=== PATIENT | male | born 1955 | race American Indian/Alaskan Native ===

== ENCOUNTER 2018-06-02 23:46 | Inpatient (IN) | payer MEDICARE ==
[2018-06-03] MEDS ORDERED: NACL 0.9% 500 ML 500 ML IV ONE (00:03)
--- NOTE | 2018-06-03 00:03 | Emergency Department Report ---
ED Altered Mental Status HPI - General Stated Complaint: POSSIBLE SEPSIS Time Seen by Provider: 06/02/18 23:59 Source: patient, family, EMS Mode of arrival: Stretcher Limitations: Altered Mental Status - History of Present Illness Initial Comments: Patient is 62-year-old male presents emergency room via EMS. EMS states that the patient's family called 911 for altered mental status and possible high sugar. However when EMS assessed patient patient was hypoxic and had a fever and was altered. Patient and family deny cough and abdominal pain. Patient denies chest pain shortness of breath patient is A& O 2 patient is lethargic but arousable. is at bedside. per , patient has not complained of any chest pain shortness of breath, abdominal pain. Patient's states that the patient has a history of CHF, hypertension, and end-stage renal disease on hemodialysis. states that the patient has had 2 bouts of diarrhea today. No blood noted in the stool MD Complaint: altered mental status -: Sudden Severity: severe Associated Symptoms: fever/chills, malaise, weakness. denies: chest pain, cough , diaphoresis, headaches, loss of appetite, nausea/vomiting, rash, seizure, shortness of breath, syncope, foul smelling urine, difficulty walking, diarrhea , incontinence Treatments Prior to Arrival: oxygen - Related Data Allergies Allergy/AdvReac Type Severity Reaction Status Date / Time No Known Allergies Allergy Verified 06/03/18 00:40 ED Review of Systems ROS: Stated complaint: POSSIBLE SEPSIS Other details as noted in HPI Comment: Unobtainable due to pts medical conditions ED Past Medical Hx - Past Medical History Previous Medical History?: Yes Hx Hypertension: Yes Hx Congestive Heart Failure: Yes Hx Diabetes: Yes Hx Renal Disease: Yes (hd) - Surgical History Past Surgical History?: Yes Additional Surgical History: Hemodialysis shunt - Family History Family history: no significant - Social History Smoking Status: Never Smoker Substance Use Type: None ED Physical Exam - General Limitations: Altered Mental Status General appearance: alert, in no apparent distress, lethargic (but arousable) - Head Head exam: Present: atraumatic, normocephalic - Eye Eye exam: Present: normal appearance Pupils: Present: normal accommodation - ENT ENT exam: Present: mucous membranes dry - Neck Neck exam: Present: normal inspection - Respiratory Respiratory exam: Present: normal lung sounds bilaterally. Absent: respiratory distress - Cardiovascular Cardiovascular Exam: Present: regular rate, normal rhythm. Absent: systolic murmur, diastolic murmur, rubs, gallop - GI/Abdominal GI/Abdominal exam: Present: soft, normal bowel sounds - Rectal Rectal exam: Present: deferred - Extremities Exam Extremities exam: Present: normal inspection - Back Exam Back exam: Present: normal inspection - Neurological Exam Neurological exam: Present: alert, altered - Expanded Neurological Exam Expanded Best Eye Response (Venus): (3) open to voice Best Motor Response (Venus): (6) obeys commands Best Verbal Response (Marylu): (4) confused conversation Venus Total: 13 - Skin Skin exam: Present: warm, dry, normal color. Absent: rash - Assessment Assessment Interval: Baseline - Level of Consciousness 1a. Level of Consciousness: not alert, arousable - LOC Questions 1b. LOC Questions: answers correctly - LOC Command 1c. LOC Commands: performs tasks correctly - Best Gaze 2. Best Gaze: normal - Visual 3. Visual: no visual loss - Facial Palsy 4. Facial Palsy: normal symmetrical movement - Motor Arm 5b. Motor Arm Right: no drift 5a. Motor Arm Left: no drift - Motor Leg 6a. Motor Leg Left: no drift 6b. Motor Leg Right: no drift - Limb Ataxia 7. Limb Ataxia: absent - Sensory 8. Sensory: normal - Best Language 9. Best Language: no aphasia - Dysarthria 10. Dysarthria: normal - Extinction and Inattention 11. Extinction/Inattention: no abnormality - Scoring Total Score: 1 Stroke Severity: Minor Stroke ED Course Vital Signs 06/02/18 06/02/18 06/03/18 23:53 23:55 00:01 Temperature 100.6 F H Pulse Rate 111 H 111 H 110 H Respiratory 19 20 19 Rate Blood Pressure 78/45 78/45 O2 Sat by Pulse 92 89 85 Oximetry 06/03/18 06/03/18 06/03/18 00:15 00:31 00:46 Temperature Pulse Rate 106 H 104 H 105 H Respiratory 17 21 17 Rate Blood Pressure 78/45 78/45 84/46 O2 Sat by Pulse 97 96 100 Oximetry 06/03/18 06/03/18 06/03/18 01:00 01:01 01:53 Temperature Pulse Rate 100 H Respiratory 18 Rate Blood Pressure 92/41 O2 Sat by Pulse 97 95 93 Oximetry 06/03/18 06/03/18 06/03/18 02:00 02:16 02:30 Temperature Pulse Rate Respiratory Rate Blood Pressure 92/41 95/53 92/41 O2 Sat by Pulse 94 93 95 Oximetry 06/03/18 06/03/18 06/03/18 02:46 03:00 03:15 Temperature Pulse Rate Respiratory Rate Blood Pressure 91/52 84/46 91/52 O2 Sat by Pulse 98 92 87 Oximetry 06/03/18 05:38 Temperature Pulse Rate Respiratory Rate Blood Pressure 86/46 O2 Sat by Pulse Oximetry - Reevaluation(s) Reevaluation #1: Lungs still clear. Blood pressure still low. We'll give the patient another saline bolus. We'll continue to monitor patient's blood pressure and respiratory status to avoid pulmonary edema. 06/03/18 02:50 Reevaluation #2: discussed case with [facility] doctor, dr mejia. Dr mejia gave us approval to admit here 06/03/18 04:47 Reevaluation #3: Blood pressure has improved. In heart rate has improved. Per the patient's , his blood pressure is usually around 100. Discussed results with and patient. Patient is oriented 3 At this time. states that he has had a bladder infection in the past that has caused similar symptoms for him. Patient and agree with plan of care and admission to the hospital. 06/03/18 04:55 - EJ/Peripheral Line Neck L Time Out Performed: Yes Indications: nurses unable to establis Skin Cleansed in Sterile Fashion: Yes Size: 20 Dressing Placed: Tegaderm, tape Patient Tolerated Procedure: well - Lab Data Result diagrams: 06/03/18 00:48 06/03/18 01:41 Lab Results 06/03/18 06/03/18 06/03/18 Range/Units 00:48 00:48 01:41 WBC 15.1 H (4.5-11.0) K/mm3 RBC 3.92 (3.65-5.03) M/mm3 Hgb 11.4 L (11.8-15.2) gm/dl Hct 34.5 L (35.5-45.6) % MCV 88 (84-94) fl MCH 29 (28-32) pg MCHC 33 (32-34) % RDW 19.3 H (13.2-15.2) % Plt Count 334 (140-440) K/mm3 Lymph % (Auto) 7.8 L (13.4-35.0) % [place] % (Auto) 11.1 H (0.0-7.3) % Eos % (Auto) 1.2 (0.0-4.3) % Baso % (Auto) 0.4 (0.0-1.8) % Lymph # 1.2 (1.2-5.4) K/mm3 [place] # 1.7 H (0.0-0.8) K/mm3 Eos # 0.2 (0.0-0.4) K/mm3 Baso # 0.1 (0.0-0.1) K/mm3 Seg Neutrophils % 79.5 H (40.0-70.0) % Seg Neutrophils # 12.0 H (1.8-7.7) K/mm3 Sodium 135 L (137-145) mmol/L Potassium 5.1 H (3.6-5.0) mmol/L Chloride 89.5 L (98-107) mmol/L Carbon Dioxide 31 H (22-30) mmol/L Anion Gap 20 mmol/L BUN 35 H (9-20) mg/dL Creatinine 7.3 H (0.8-1.5) mg/dL Estimated GFR 9 ml/min BUN/Creatinine Ratio 5 % Glucose 299 H (75-100) mg/dL Lactic Acid 1.20 (0.7-2.0) mmol/L Calcium 9.0 (8.4-10.2) mg/dL Total Bilirubin 0.30 (0.1-1.2) mg/dL AST 22 (5-40) units/L ALT 24 (7-56) units/L Alkaline Phosphatase 118 (35-129) units/L Total Creatine Kinase 32 L (55-170) units/L Troponin T 0.074 H (0.00-0.029) ng/mL Total Protein 6.6 (6.3-8.2) g/dL Albumin 3.3 L (3.9-5) g/dL Albumin/Globulin Ratio 1.0 % Triglycerides 134 (2-149) mg/dL Cholesterol 68 (50-199) mg/dL LDL Cholesterol Direct 26 L (50-130) mg/dL HDL Cholesterol 12 L (40-59) mg/dL Cholesterol/HDL Ratio 5.66 % - EKG Data -: EKG Interpreted by Me EKG shows normal: sinus rhythm, axis, intervals, QRS complexes, ST-T waves Rate: tachycardia - Radiology Data Radiology results: report reviewed CT abdomen shows generalized thickening of the bladder consistent with acute cystitis. CT head is negative for acute findings. Chronic findings noted. Chest x-ray no acute findings. - Medical Decision Making 62-year-old male. The patient is emergency room with hypotension and tachycardia and fever. Patient found to be septic. Patient to be admitted to the hospitalist service for further evaluation and treatment. All results discussed with family and patient. Both and patient agreed to admission. - Differential Diagnosis sepsis. fever. pna, uti, ams. Critical Care Time: Yes Critical care attestation.: If time is entered above; I have spent that time in minutes in the direct care of this critically ill patient, excluding procedure time. Critical Care Time: 55 minutes for cc time ED Disposition Clinical Impression: Hypoxia, CKD (chronic kidney disease) stage 5, GFR less than 15 ml/min, Hyperkalemia Altered mental state Qualifiers: Altered mental status type: unspecified Qualified Code(s): R41.82 - Altered mental status, unspecified Hypotension Qualifiers: Hypotension type: unspecified hypotension type Qualified Code(s): I95.9 - Hypotension, unspecified Fever Qualifiers: Fever type: unspecified Qualified Code(s): R50.9 - Fever, unspecified Sepsis Qualifiers: Sepsis type: sepsis due to unspecified organism Qualified Code(s): A41.9 - Sepsis, unspecified organism Acute cystitis Qualifiers: Hematuria presence: without hematuria Qualified Code(s): N30.00 - Acute cystitis without hematuria Disposition: OP ADMIT IP TO THIS HOSP Is pt being admited?: Yes Does the pt Need Aspirin: No Condition: Critical Time of Disposition: 04:56
[2018-06-03] MEDS ORDERED: NACL 0.9% 1000 ML 1,000 ML IV ONE ×3 (00:20→04:52)
[2018-06-03 01:36] LABS: Basophils # (Auto) 0.1 K/mm3 (0.0-0.1); Basophils % (Auto) 0.4 % (0.0-1.8); Eosinophils # (Auto) 0.2 K/mm3 (0.0-0.4); Eosinophils % (Auto) 1.2 % (0.0-4.3); Hematocrit 34.5 % (35.5-45.6); Hemoglobin 11.4 gm/dl (11.8-15.2); Lymphocytes # (Auto) 1.2 K/mm3 (1.2-5.4); Lymphocytes % (Auto) 7.8 % (13.4-35.0); Mean Corpuscular HGB Conc 33 % (32-34); Mean Corpuscular Hemoglobin 29 pg (28-32); Mean Corpuscular Volume 88 fl (84-94); Monocytes # (Auto) 1.7 K/mm3 (0.0-0.8); Monocytes % (Auto) 11.1 % (0.0-7.3); Platelet Count 334 K/mm3 (140-440); Red Blood Count 3.92 M/mm3 (3.65-5.03); Red Cell Distribution Width 19.3 % (13.2-15.2)
--- NOTE | 2018-06-03 01:45 | Cat Scan Report ---
FINAL REPORT EXAM: CT HEAD/BRAIN WO CON HISTORY: Altered Mental Status TECHNIQUE: Routine axial imaging was obtained of the brain without IV contrast. FINDINGS: There is diminished attenuation of the periventricular and deep white matter compatible with chronic microvascular disease changes. There is no evidence of acute stroke or hemorrhage. The ventricular system is appropriate in size. The basal cisterns appear normal. The visualized sinuses are clear. The mastoid air cells are well pneumatized. The calvarium appears intact. IMPRESSION: Diminished attenuation of the periventricular and deep white matter compatible chronic microvascular disease changes. No evidence of acute stroke or hemorrhage.
[2018-06-03 02:11] LABS: Albumin 3.3 g/dL (3.9-5)
[2018-06-03 02:54] LABS: Chol/HDL Ratio 5.66 %
[2018-06-03] MEDS ORDERED: ZOSYN/NS 2.25 GM/50ML 2.25 GM/50 ML BAG IV SCH ×2 (03:00→12:00)
--- NOTE | 2018-06-03 03:30 | XRay Report ---
FINAL REPORT EXAM: XR CHEST 1V AP HISTORY: fever TECHNIQUE: A portable view the chest was obtained. FINDINGS: The heart size and vascularity appear normal. The lungs are clear. Pleural fluid is not seen. The skeletal structures do not show any acute changes. IMPRESSION: No acute cardiopulmonary process.
--- NOTE | 2018-06-03 04:16 | Cat Scan Report ---
FINAL REPORT EXAM: CT ABDOMEN PELVIS WO CON HISTORY: diarrhea. fever. TECHNIQUE: Routine axial imaging was obtained of the abdomen and pelvis without oral or IV contrast. Sagittal and coronal reconstructions were reviewed. FINDINGS: Lung bases reveal mild chronic changes. Pleural fluid is not seen. There is a small hiatal hernia. The liver, gallbladder, adrenal glands and spleen appear normal. The pancreas is mildly atrophic. The kidneys are very atrophic. There benign cystic changes in the right kidney. There is no evidence of hydronephrosis. The bowel loops are normal in caliber and course. The appendix is not enlarged. There is no evidence of free fluid or adenopathy. In the pelvis there is generalized bladder wall thickening suspicious for cystitis. The prostate gland appears normal. The skeletal structures reveal arthritic changes in both hip joints and extensive arthritic changes throughout the lumbar spine. IMPRESSION: Generalized bladder wall thickening suspicious for underlying cystitis. No evidence of ileus or bowel obstruction. Normal appendix. Extensive arthritic changes involving the hip joints and lumbar spine. Small hiatal hernia.
[2018-06-03] MEDS ORDERED: NORCO 5/325 PO PRN (06:21)
[2018-06-03] MEDS ORDERED: TYLENOL PO PRN (06:21)
[2018-06-03] MEDS ORDERED: SODIUM CHLORIDE FLUSH SYRINGE 10 ML IV PRN (06:21)
[2018-06-03] MEDS ORDERED: ZOFRAN IV PRN (06:21)
[2018-06-03] MEDS ORDERED: D50W (25GM) Syringe IV PRN (06:24)
--- NOTE | 2018-06-03 06:33 | History and Physical Report ---
History of Present Illness Date of examination: 06/03/18 Date of admission: 06/03/18 Chief complaint: Fever with chills History of present illness: Patient is a 62-year-old -[place] male with history of end-stage renal disease on hemodialysis who presented to the ED on account of 1 day history of fever with chills. He denies cough, chest pain, shortness of breath, headaches , nausea, vomiting, dizziness, syncope or loss of consciousness. He stated that he was recently prescribed clindamycin for his chronic Left foot infection. However, he had to stop taking it because it gave him diarrhea. He denies abdominal pain. Past History Past Medical History: diabetes, ESRD (on hemodialysis), other (chronic hypotension, CHF) Past Surgical History: Other (AV fistula placement, multiple toe amputation) Social history: no significant social history (he denies tobacco, alcohol or illicit drug use) Family history: other (reviewed and noncontributory) Medications and Allergies Allergies Allergy/AdvReac Type Severity Reaction Status Date / Time No Known Allergies Allergy Verified 06/03/18 00:40 Active Meds: Active Medications Acetaminophen (Tylenol) 650 mg PO Q4H PRN PRN Reason: Pain MILD(1-3)/Fever >100.5/CRISTOBAL Acetaminophen/Hydrocodone Bitart ([place] 5/325) 1 each PO Q6H PRN PRN Reason: Pain, Moderate (4-6) Dextrose (D50w (25gm) Syringe) 50 ml IV PRN PRN PRN Reason: Hypoglycemia Heparin Sodium (Porcine) (Heparin) 5,000 unit SUB-Q Q8HR MERARI Piperacillin Sod/Tazobactam Sod (Zosyn/Ns 3.375gm/50ml) 3.375 gm in 50 mls @ 100 mls/hr IV Q8HR MERARI; Protocol Insulin Glargine (Lantus) 15 units SUB-Q QHS MERARI Insulin Human Lispro (Humalog) 0 unit SUB-Q ACHS MERARI; Protocol Ondansetron HCl (Zofran) 4 mg IV Q8H PRN PRN Reason: Nausea And Vomiting Sodium Chloride (Sodium Chloride Flush Syringe 10 Ml) 10 ml IV BID MERARI Sodium Chloride (Sodium Chloride Flush Syringe 10 Ml) 10 ml IV PRN PRN PRN Reason: LINE FLUSH Review of Systems All systems: negative (except as documented in the HPI, all other systems were reviewed and negative) Exam - Constitutional Vitals: Temp Pulse Resp BP Pulse Ox 100.6 F H 100 H 18 86/46 87 06/02/18 23:55 06/03/18 01:00 06/03/18 01:00 06/03/18 05:38 06/03/18 03:15 General appearance: Present: no acute distress, obese - EENT Eyes: Present: PERRL, EOM intact ENT: hearing intact, clear oral mucosa - Neck Neck: Present: supple, normal ROM - Respiratory Respiratory effort: normal Respiratory: bilateral: CTA - Cardiovascular Rhythm: regular Heart Sounds: Present: S1 & S2. Absent: rub, click - Extremities Extremity abnormal: other (dressing noted over left foot) - Abdominal General gastrointestinal: Present: soft, non-tender, non-distended, normal bowel sounds - Musculoskeletal Musculoskeletal: gait normal, strength equal bilaterally - Psychiatric Psychiatric: appropriate mood/affect - Neurologic Neurologic: CNII-XII intact, moves all extremities Results - Labs CBC & Chem 7: 06/03/18 00:48 06/03/18 01:41 Labs: Laboratory Last Values WBC 15.1 K/mm3 (4.5-11.0) H 06/03/18 00:48 RBC 3.92 M/mm3 (3.65-5.03) 06/03/18 00:48 Hgb 11.4 gm/dl (11.8-15.2) L 06/03/18 00:48 Hct 34.5 % (35.5-45.6) L 06/03/18 00:48 MCV 88 fl (84-94) 06/03/18 00:48 MCH 29 pg (28-32) 06/03/18 00:48 MCHC 33 % (32-34) 06/03/18 00:48 RDW 19.3 % (13.2-15.2) H 06/03/18 00:48 Plt Count 334 K/mm3 (140-440) 06/03/18 00:48 Lymph % (Auto) 7.8 % (13.4-35.0) L 06/03/18 00:48 [place] % (Auto) 11.1 % (0.0-7.3) H 06/03/18 00:48 Eos % (Auto) 1.2 % (0.0-4.3) 06/03/18 00:48 Baso % (Auto) 0.4 % (0.0-1.8) 06/03/18 00:48 Lymph # 1.2 K/mm3 (1.2-5.4) 06/03/18 00:48 [place] # 1.7 K/mm3 (0.0-0.8) H 06/03/18 00:48 Eos # 0.2 K/mm3 (0.0-0.4) 06/03/18 00:48 Baso # 0.1 K/mm3 (0.0-0.1) 06/03/18 00:48 Seg Neutrophils % 79.5 % (40.0-70.0) H 06/03/18 00:48 Seg Neutrophils # 12.0 K/mm3 (1.8-7.7) H 06/03/18 00:48 Sodium 135 mmol/L (137-145) L 06/03/18 01:41 Potassium 5.1 mmol/L (3.6-5.0) H 06/03/18 01:41 Chloride 89.5 mmol/L (98-107) L 06/03/18 01:41 Carbon Dioxide 31 mmol/L (22-30) H 06/03/18 01:41 Anion Gap 20 mmol/L 06/03/18 01:41 BUN 35 mg/dL (9-20) H 06/03/18 01:41 Creatinine 7.3 mg/dL (0.8-1.5) H 06/03/18 01:41 Estimated GFR 9 ml/min 06/03/18 01:41 BUN/Creatinine Ratio 5 % 06/03/18 01:41 Glucose 299 mg/dL (75-100) H 06/03/18 01:41 Lactic Acid 1.20 mmol/L (0.7-2.0) 06/03/18 00:48 Calcium 9.0 mg/dL (8.4-10.2) 06/03/18 01:41 Total Bilirubin 0.30 mg/dL (0.1-1.2) 06/03/18 01:41 AST 22 units/L (5-40) 06/03/18 01:41 ALT 24 units/L (7-56) 06/03/18 01:41 Alkaline Phosphatase 118 units/L (35-129) 06/03/18 01:41 Total Creatine Kinase 32 units/L (55-170) L 06/03/18 01:41 Troponin T 0.074 ng/mL (0.00-0.029) H 06/03/18 01:41 Total Protein 6.6 g/dL (6.3-8.2) 06/03/18 01:41 Albumin 3.3 g/dL (3.9-5) L 06/03/18 01:41 Albumin/Globulin Ratio 1.0 % 06/03/18 01:41 Triglycerides 134 mg/dL (2-149) 06/03/18 01:41 Cholesterol 68 mg/dL (50-199) 06/03/18 01:41 LDL Cholesterol Direct 26 mg/dL (50-130) L 06/03/18 01:41 HDL Cholesterol 12 mg/dL (40-59) L 06/03/18 01:41 Cholesterol/HDL Ratio 5.66 % 06/03/18 01:41 Assessment and Plan Assessment and plan: Sepsis probably secondary to chronic left foot cellulitis versus possible cystitis per CT abdomen/pelvis -On IV Zosyn -Follow up blood culture results Chronic left foot cellulitis -Consult wound care nurse Diarrhea -Will check C. difficile toxin due to recent clindamycin use IDDM2 with hyperglycemia -On SSI and Lantus Chronic hypotension -Monitor blood pressure closely End-stage renal disease on HD (M,W,F) -Consult nephrology Prophylaxis -DVT prophylaxis with heparin 40 minutes spent coordinating care
[2018-06-03] MEDS ORDERED: NACL 0.9% 1000 ML 1,000 ML IV SCH (08:00)
[2018-06-03] MEDS: HumaLOG SUB-Q SCH ×4 (09:07→22:19)
--- NOTE | 2018-06-03 13:35 | Progress Note ---
Assessment and Plan Assessment and plan: Mr. 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 * CT ab/pelvis without contrast IMPRESSION: Generalized bladder wall thickening suspicious for underlying cystitis. No evidence of ileus or bowel obstruction. Normal appendix. Extensive arthritic changes involving the hip joints and lumbar spine. Small hiatal hernia. * pCXR reported as no acute findings * CT head w/o contrast IMPRESSION: Diminished attenuation of the periventricular and deep white matter compatible chronic microvascular disease changes. No evidence of acute stroke or hemorrhage. Sepsis due to skin infection probably secondary to chronic left foot cellulitis : treat with IV Zosyn, Follow up blood culture results Acute on chronic left foot cellulitis now with Gangrene: consult Dr. Du and wound care nurse Severe PAD: consult Vascular surgery Diarrhea: check C. difficile toxin due to recent clindamycin use IDDM2 with hyperglycemia and PAD: On SSI and Lantus Chronic hypotension related to ESRD: Monitor blood pressure closely End-stage renal disease on HD (M,W,F): Consult nephrology Hyperkalemia: treat with hemodialysis, bmp am Anemia: cbc in am DVT prophylaxis with heparin Advance care planning: full code Patent's home foot dressing was never removed. The right transmetatarasal amputation site with minor pressure signs but the LEFT lateral foot is necrotic which may extend to midplantar area, also necrotic area on left pinky toe aka 5 digit, Also the right palmar surface of the hands have ulceration. Right aVG present CCT 32 minutes History Interval history: Patient was seen and examined. Follow-up on current diagnosis. Overnight uneventful. Patient denies any chest pain, shortness breath, nausea/vomiting or severe headaches. Imaging, nursing note, chart, labs and old chart reviewed. Discussed with patient. Hospitalist Physical - Physical exam Narrative exam: GEN: WDWN, NAD, Awake, Alert, Orientated x 3 HEENT: NCAT, EOMI, PERRL, OP Clear NECK: supple, no adenopathy, no thyromegaly, no JVD CVS/HEART: RRR, normal S1S2, pulses present bilaterally CHEST/LUNGS: CTA B, Symmetrical chest expansion, good air entry bilaterally GI/Abdomen: soft, NTND, good bowel sounds, no guarding or rebound /Bladder: no suprapubic tenderness, no CVA or paraspinal tenderness EXT/Skin: left foot necrotic lateral upper edge to the midplanter area, left 5th toe area of necrosis, right palmar hand with ulceration, right 1-4 finger amputation at the DIP joint , right transmetatarsal amputation MSK: FROM x 4 Neuro: CN 2-12 grossly intact, no new focal deficits Psych: calm - Constitutional Vitals: Temp Pulse Resp BP Pulse Ox 98.9 F 90 20 97/55 91 06/03/18 12:51 06/03/18 12:51 06/03/18 12:51 06/03/18 12:51 06/03/18 12:51 General appearance: Present: no acute distress, obese Results - Labs CBC & Chem 7: 06/03/18 00:48 06/03/18 01:41 Labs: Laboratory Last Values WBC 15.1 K/mm3 (4.5-11.0) H 06/03/18 00:48 RBC 3.92 M/mm3 (3.65-5.03) 06/03/18 00:48 Hgb 11.4 gm/dl (11.8-15.2) L 06/03/18 00:48 Hct 34.5 % (35.5-45.6) L 06/03/18 00:48 MCV 88 fl (84-94) 06/03/18 00:48 MCH 29 pg (28-32) 06/03/18 00:48 MCHC 33 % (32-34) 06/03/18 00:48 RDW 19.3 % (13.2-15.2) H 06/03/18 00:48 Plt Count 334 K/mm3 (140-440) 06/03/18 00:48 Lymph % (Auto) 7.8 % (13.4-35.0) L 06/03/18 00:48 [place] % (Auto) 11.1 % (0.0-7.3) H 06/03/18 00:48 Eos % (Auto) 1.2 % (0.0-4.3) 06/03/18 00:48 Baso % (Auto) 0.4 % (0.0-1.8) 06/03/18 00:48 Lymph # 1.2 K/mm3 (1.2-5.4) 06/03/18 00:48 [place] # 1.7 K/mm3 (0.0-0.8) H 06/03/18 00:48 Eos # 0.2 K/mm3 (0.0-0.4) 06/03/18 00:48 Baso # 0.1 K/mm3 (0.0-0.1) 06/03/18 00:48 Seg Neutrophils % 79.5 % (40.0-70.0) H 06/03/18 00:48 Seg Neutrophils # 12.0 K/mm3 (1.8-7.7) H 06/03/18 00:48 Sodium 135 mmol/L (137-145) L 06/03/18 01:41 Potassium 5.1 mmol/L (3.6-5.0) H 06/03/18 01:41 Chloride 89.5 mmol/L (98-107) L 06/03/18 01:41 Carbon Dioxide 31 mmol/L (22-30) H 06/03/18 01:41 Anion Gap 20 mmol/L 06/03/18 01:41 BUN 35 mg/dL (9-20) H 06/03/18 01:41 Creatinine 7.3 mg/dL (0.8-1.5) H 06/03/18 01:41 Estimated GFR 9 ml/min 06/03/18 01:41 BUN/Creatinine Ratio 5 % 06/03/18 01:41 Glucose 299 mg/dL (75-100) H 06/03/18 01:41 POC Glucose 256 (70-105) H 06/03/18 12:01 Lactic Acid 1.20 mmol/L (0.7-2.0) 06/03/18 00:48 Calcium 9.0 mg/dL (8.4-10.2) 06/03/18 01:41 Total Bilirubin 0.30 mg/dL (0.1-1.2) 06/03/18 01:41 AST 22 units/L (5-40) 06/03/18 01:41 ALT 24 units/L (7-56) 06/03/18 01:41 Alkaline Phosphatase 118 units/L (35-129) 06/03/18 01:41 Total Creatine Kinase 32 units/L (55-170) L 06/03/18 01:41 Troponin T 0.074 ng/mL (0.00-0.029) H 06/03/18 01:41 Total Protein 6.6 g/dL (6.3-8.2) 06/03/18 01:41 Albumin 3.3 g/dL (3.9-5) L 06/03/18 01:41 Albumin/Globulin Ratio 1.0 % 06/03/18 01:41 Triglycerides 134 mg/dL (2-149) 06/03/18 01:41 Cholesterol 68 mg/dL (50-199) 06/03/18 01:41 LDL Cholesterol Direct 26 mg/dL (50-130) L 06/03/18 01:41 HDL Cholesterol 12 mg/dL (40-59) L 06/03/18 01:41 Cholesterol/HDL Ratio 5.66 % 06/03/18 01:41
[2018-06-03] MEDS ORDERED: ZOSYN/NS 3.375GM/50ML 3.375 GM/50 ML BAG IV SCH (14:00)
[2018-06-03] MEDS: HEPARIN SUB-Q SCH ×2 (14:25→22:14)
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
[2018-06-03] MEDS: FLAGYL 500 MG/100 ML 500 MG/100 ML BAG IV SCH ×2 (15:31→22:20)
[2018-06-03] MEDS ORDERED: NACL 0.9% 100 ML IV PRN (15:50)
[2018-06-03] MEDS: ZOSYN/NS 2.25 GM/50ML 2.25 GM/50 ML BAG IV SCH ×2 (18:19→22:15)
[2018-06-03] MEDS: SODIUM CHLORIDE FLUSH SYRINGE 10 ML IV SCH ×2 (18:20→22:15)
[2018-06-03] MEDS: LANTUS SUB-Q SCH (22:20)
[2018-06-04] MEDS: ZOSYN/NS 2.25 GM/50ML 2.25 GM/50 ML BAG IV SCH ×3 (05:01→22:25)
[2018-06-04] MEDS: HEPARIN SUB-Q SCH ×3 (05:02→22:25)
[2018-06-04] MEDS: FLAGYL 500 MG/100 ML 500 MG/100 ML BAG IV SCH ×3 (05:04→23:54)
[2018-06-04 07:03] LABS: Basophils % (Auto) 0.5 % (0.0-1.8); Eosinophils # (Auto) 0.2 K/mm3 (0.0-0.4); Eosinophils % (Auto) 2.2 % (0.0-4.3); Hematocrit 34.2 % (35.5-45.6); Lymphocytes # (Auto) 1.3 K/mm3 (1.2-5.4); Lymphocytes % (Auto) 12.8 % (13.4-35.0); Mean Corpuscular HGB Conc 32 % (32-34); Mean Corpuscular Hemoglobin 29 pg (28-32); Mean Corpuscular Volume 89 fl (84-94); Monocytes # (Auto) 1.2 K/mm3 (0.0-0.8); Monocytes % (Auto) 12.1 % (0.0-7.3); Platelet Count 307 K/mm3 (140-440); Red Blood Count 3.84 M/mm3 (3.65-5.03); Red Cell Distribution Width 18.7 % (13.2-15.2)
[2018-06-04 07:28] LABS: Calcium 9.1 mg/dL (8.4-10.2)
[2018-06-04] MEDS: HumaLOG SUB-Q SCH ×4 (10:02→22:50)
[2018-06-04] MEDS ORDERED: NACL 0.9% 100 ML IV PRN (11:30)
[2018-06-04 12:06] LABS: Hepatitis A Antibody IgM Non-Reactive (NonReactive); Hepatitis B Core IgM Non-Reactive (NonReactive); Hepatitis C Virus Antibody Non-Reactive (NonReactive)
--- NOTE | 2018-06-04 12:46 | Progress Note ---
Assessment and Plan Assessment and plan: Mr. Bear is a 62 yo man with a history of ESRD on hemodialysis, hypertension , chronic hypotension, CHF, DM type 2 with PVD/Neuropathy s/p right foor transmetatarsal amputation and s/p right finger amputation to the DIP except thumb who presented to ED from home with fevers, chills and AMS after he stopped taking the clindamycin for chronic left foot infection because it gave him diarrhea. * CT ab/pelvis without contrast IMPRESSION: Generalized bladder wall thickening suspicious for underlying cystitis. No evidence of ileus or bowel obstruction. Normal appendix. Extensive arthritic changes involving the hip joints and lumbar spine. Small hiatal hernia. * pCXR reported as no acute findings * CT head w/o contrast IMPRESSION: Diminished attenuation of the periventricular and deep white matter compatible chronic microvascular disease changes. No evidence of acute stroke or hemorrhage. Sepsis due to skin infection probably secondary to chronic left foot cellulitis and right foot cellulitis with ulcers: treat with IV Zosyn, Follow up blood culture results Acute encephalopathy due to above, poa, resolved Acute on chronic left foot cellulitis now with Gangrene: consult Dr. Du and wound care nurse Severe PAD: consulted Vascular surgery Diarrhea resolved: ordered C. difficile toxin due to recent clindamycin use, not done b/c no diarrhea IDDM2 with hyperglycemia and PAD: On SSI and Lantus Chronic hypotension related to ESRD: Monitor blood pressure closely End-stage renal disease on HD (M,W,F): Consult nephrology Hyperkalemia: treat with hemodialysis, bmp am Anemia: cbc in am DVT prophylaxis with heparin Advance care planning: full code * left foot necrotic lateral upper edge to the midplanter area, also left 5th toe area of necrosis, * right palmar hand with ulceration, right 1-4 finger amputation at the DIP joint, * right palmar surface foot with ulceration, has right transmetatarsal amputation Left EJ present, uncomfortable, I have spoken with PICC nurse to place a peripheral INT and remove left EJ Await Vascular consult, Wound Care History Interval history: Patient was seen and examined. Follow-up on current diagnosis of foot infection and confusion which has resolved. Overnight uneventful. Patient denies any chest pain, shortness breath, nausea/vomiting or severe headaches. Imaging, nursing note, chart, labs and old chart reviewed. Discussed with patient. Hospitalist Physical - Physical exam Narrative exam: GEN: WDWN, NAD, Awake, Alert, Orientated x 3 HEENT: NCAT, EOMI, PERRL, OP Clear, left EJ in place NECK: supple, no adenopathy, no thyromegaly, no JVD CVS/HEART: RRR, normal S1S2, pulses present bilaterally CHEST/LUNGS: CTA B, Symmetrical chest expansion, good air entry bilaterally GI/Abdomen: soft, NTND, good bowel sounds, no guarding or rebound /Bladder: no suprapubic tenderness, no CVA or paraspinal tenderness EXT/Skin: * left foot necrotic lateral upper edge to the midplanter area, left 5th toe area of necrosis, * right palmar hand with ulceration, right 1-4 finger amputation at the DIP joint, * right palmar surface foot with ulceration with right transmetatarsal amputation MSK: FROM x 4 Neuro: CN 2-12 grossly intact, no new focal deficits Psych: calm - Constitutional Vitals: Temp Pulse Resp BP Pulse Ox 98.6 F 77 18 91/45 91 06/04/18 09:25 06/04/18 11:45 06/04/18 09:25 06/04/18 11:45 06/04/18 09:05 General appearance: Present: no acute distress, obese Results - Labs CBC & Chem 7: 06/04/18 05:52 06/04/18 05:52 Labs: Laboratory Last Values WBC 9.9 K/mm3 (4.5-11.0) 06/04/18 05:52 RBC 3.84 M/mm3 (3.65-5.03) 06/04/18 05:52 Hgb 11.0 gm/dl (11.8-15.2) L 06/04/18 05:52 Hct 34.2 % (35.5-45.6) L 06/04/18 05:52 MCV 89 fl (84-94) 06/04/18 05:52 MCH 29 pg (28-32) 06/04/18 05:52 MCHC 32 % (32-34) 06/04/18 05:52 RDW 18.7 % (13.2-15.2) H 06/04/18 05:52 Plt Count 307 K/mm3 (140-440) 06/04/18 05:52 Lymph % (Auto) 12.8 % (13.4-35.0) L 06/04/18 05:52 [place] % (Auto) 12.1 % (0.0-7.3) H 06/04/18 05:52 Eos % (Auto) 2.2 % (0.0-4.3) 06/04/18 05:52 Baso % (Auto) 0.5 % (0.0-1.8) 06/04/18 05:52 Lymph # 1.3 K/mm3 (1.2-5.4) 06/04/18 05:52 [place] # 1.2 K/mm3 (0.0-0.8) H 06/04/18 05:52 Eos # 0.2 K/mm3 (0.0-0.4) 06/04/18 05:52 Baso # 0.0 K/mm3 (0.0-0.1) 06/04/18 05:52 Seg Neutrophils % 72.4 % (40.0-70.0) H 06/04/18 05:52 Seg Neutrophils # 7.2 K/mm3 (1.8-7.7) 06/04/18 05:52 Sodium 137 mmol/L (137-145) 06/04/18 05:52 Potassium 5.3 mmol/L (3.6-5.0) H 06/04/18 05:52 Chloride 94.0 mmol/L (98-107) L 06/04/18 05:52 Carbon Dioxide 25 mmol/L (22-30) 06/04/18 05:52 Anion Gap 23 mmol/L 06/04/18 05:52 BUN 49 mg/dL (9-20) H 06/04/18 05:52 Creatinine 9.7 mg/dL (0.8-1.5) H 06/04/18 05:52 Estimated GFR 7 ml/min 06/04/18 05:52 BUN/Creatinine Ratio 5 % 06/04/18 05:52 Glucose 171 mg/dL (75-100) H 06/04/18 05:52 POC Glucose 226 (70-105) H 06/03/18 20:15 Lactic Acid 1.20 mmol/L (0.7-2.0) 06/03/18 00:48 Calcium 9.1 mg/dL (8.4-10.2) 06/04/18 05:52 Total Bilirubin 0.30 mg/dL (0.1-1.2) 06/03/18 01:41 AST 22 units/L (5-40) 06/03/18 01:41 ALT 24 units/L (7-56) 06/03/18 01:41 Alkaline Phosphatase 118 units/L (35-129) 06/03/18 01:41 Total Creatine Kinase 32 units/L (55-170) L 06/03/18 01:41 Troponin T 0.074 ng/mL (0.00-0.029) H 06/03/18 01:41 Total Protein 6.6 g/dL (6.3-8.2) 06/03/18 01:41 Albumin 3.3 g/dL (3.9-5) L 06/03/18 01:41 Albumin/Globulin Ratio 1.0 % 06/03/18 01:41 Triglycerides 134 mg/dL (2-149) 06/03/18 01:41 Cholesterol 68 mg/dL (50-199) 06/03/18 01:41 LDL Cholesterol Direct 26 mg/dL (50-130) L 06/03/18 01:41 HDL Cholesterol 12 mg/dL (40-59) L 06/03/18 01:41 Cholesterol/HDL Ratio 5.66 % 06/03/18 01:41 Hepatitis A IgM Ab Non-reactive (NonReactive) 06/04/18 11:15 Hep B Core IgM Ab Non-reactive (NonReactive) 06/04/18 11:15 Hepatitis C Antibody Non-reactive (NonReactive) 06/04/18 11:15
[2018-06-04 12:57] LABS: Hepatitis B Surface Antigen Non-Reactive (Negative)
--- NOTE | 2018-06-04 12:58 | Consultation ---
History of Present Illness - Reason for Consult Consult date: 06/04/18 foot wounds - History of Present Illness Patient with a history of multiple medical problems including end-stage renal disease on hemodialysis who presented with altered mental status and hypoxia. Is noted to have wounds to both feet with a TMA on his right. Past History Past Medical History: diabetes, ESRD (on hemodialysis), other (chronic hypotension, CHF) Past Surgical History: Other (AV fistula placement, multiple toe amputation) Social history: no significant social history (he denies tobacco, alcohol or illicit drug use) Family history: other (reviewed and noncontributory) Medications and Allergies Allergies Allergy/AdvReac Type Severity Reaction Status Date / Time No Known Allergies Allergy Verified 06/03/18 00:40 Home Medications Medication Instructions Recorded Confirmed Last Taken Type Unobtainable 06/04/18 06/04/18 Unknown History Active Meds: Active Medications Acetaminophen (Tylenol) 650 mg PO Q4H PRN PRN Reason: Pain MILD(1-3)/Fever >100.5/CRISTOBAL Last Admin: 06/03/18 22:15 Dose: 650 mg Acetaminophen/Hydrocodone Bitart ([place] 5/325) 1 each PO Q6H PRN PRN Reason: Pain, Moderate (4-6) Dextrose (D50w (25gm) Syringe) 50 ml IV PRN PRN PRN Reason: Hypoglycemia Heparin Sodium (Porcine) (Heparin) 5,000 unit SUB-Q Q8HR [facility]I Last Admin: 06/04/18 05:02 Dose: 5,000 unit Sodium Chloride (Nacl 0.9% 1000 Ml) 1,000 mls @ 42 mls/hr IV DIRECT [facility] Piperacillin Sod/Tazobactam Sod (Zosyn/Ns 2.25 Gm/50ml) 2.25 gm in 50 mls @ 100 mls/hr IV Q8HR [facility]; Protocol Last Admin: 06/04/18 05:01 Dose: 100 mls/hr Metronidazole (Flagyl 500 Mg/100 Ml) 500 mg in 100 mls @ 100 mls/hr IV Q8HR [facility] ; Protocol Last Admin: 06/04/18 05:04 Dose: 100 mls/hr Sodium Chloride (Nacl 0.9%) 100 mls @ 999 mls/hr IV DUANE PRN PRN Reason: Hypotension Insulin Glargine (Lantus) 15 units SUB-Q QHS [facility] Last Admin: 06/03/18 22:20 Dose: Not Given Insulin Human Lispro (Humalog) 0 unit SUB-Q ACHS [facility]; Protocol Last Admin: 06/04/18 10:02 Dose: Not Given Ondansetron HCl (Zofran) 4 mg IV Q8H PRN PRN Reason: Nausea And Vomiting Sodium Chloride (Sodium Chloride Flush Syringe 10 Ml) 10 ml IV BID [facility] Last Admin: 06/03/18 22:15 Dose: 10 ml Sodium Chloride (Sodium Chloride Flush Syringe 10 Ml) 10 ml IV PRN PRN PRN Reason: LINE FLUSH Review of Systems All systems: negative Exam - Constitutional Vitals: Temp Pulse Resp BP Pulse Ox 98.6 F 77 18 91/45 91 06/04/18 09:25 06/04/18 11:45 06/04/18 09:25 06/04/18 11:45 06/04/18 09:05 General appearance: Present: no acute distress - EENT Eyes: Present: PERRL ENT: hearing intact - Neck Neck: Present: supple, normal ROM - Respiratory Respiratory effort: normal - Cardiovascular Rhythm: regular - Extremities Extremities: abnormal - Abdominal General gastrointestinal: Present: deferred Male genitourinary: Present: deferred - Rectal Rectal Exam: deferred - Psychiatric Psychiatric: appropriate mood/affect, cooperative Results - Labs CBC & Chem 7: 06/04/18 05:52 06/04/18 05:52 Labs: Abnormal lab results 06/03/18 06/03/18 06/04/18 Range/Units 16:22 20:15 05:52 Hgb 11.0 L (11.8-15.2) gm/dl Hct 34.2 L (35.5-45.6) % RDW 18.7 H (13.2-15.2) % Lymph % (Auto) 12.8 L (13.4-35.0) % [place] % (Auto) 12.1 H (0.0-7.3) % [place] # 1.2 H (0.0-0.8) K/mm3 Seg Neutrophils % 72.4 H (40.0-70.0) % Potassium (3.6-5.0) mmol/L Chloride (98-107) mmol/L BUN (9-20) mg/dL Creatinine (0.8-1.5) mg/dL Glucose (75-100) mg/dL POC Glucose 279 H 226 H (70-105) 06/04/18 Range/Units 05:52 Hgb (11.8-15.2) gm/dl Hct (35.5-45.6) % RDW (13.2-15.2) % Lymph % (Auto) (13.4-35.0) % [place] % (Auto) (0.0-7.3) % [place] # (0.0-0.8) K/mm3 Seg Neutrophils % (40.0-70.0) % Potassium 5.3 H (3.6-5.0) mmol/L Chloride 94.0 L (98-107) mmol/L BUN 49 H (9-20) mg/dL Creatinine 9.7 H (0.8-1.5) mg/dL Glucose 171 H (75-100) mg/dL POC Glucose (70-105) Assessment and Plan Patient with bilateral foot wounds. He is a [facility] patient and currently is being seen by bench mechanic associated with [facility]. His legs are warm to the foot. At this point in time, would defer further evaluation and treatment of his lower extremities as he is artery receiving care for his wounds. If his condition changes, would consider evaluation and intervention as warranted.
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
[2018-06-04] MEDS: SODIUM CHLORIDE FLUSH SYRINGE 10 ML IV SCH ×2 (18:01→22:30)
[2018-06-04] MEDS: LANTUS SUB-Q SCH (22:50)
[2018-06-05] MEDS: ZOSYN/NS 2.25 GM/50ML 2.25 GM/50 ML BAG IV SCH (06:35)
[2018-06-05] MEDS: HEPARIN SUB-Q SCH ×2 (06:45→13:33)
[2018-06-05] MEDS: FLAGYL 500 MG/100 ML 500 MG/100 ML BAG IV SCH ×2 (06:45→13:32)
--- NOTE | 2018-06-05 08:26 | Consultation ---
History of Present Illness Consult date: 06/05/18 Reason for consult: other (Bilateral DFU's X "months") - History of present illness History of present illness: 62 yo diabetic male with bilateral DFU's for months/years. He is s/p a right TMA in June of 2015 and states that his right plantar ulcer began shortly after his surgery. His left 5th toe ulcer has been present for "months". Pt also has ESRD. His last A1c was "around 10". He denies tobacco use and denies claudication or rest pain. Past History Past Medical History: diabetes, ESRD (on hemodialysis), other (chronic hypotension, CHF) Past Surgical History: Other (AV fistula placement, multiple toe amputation) Social history: no significant social history (he denies tobacco, alcohol or illicit drug use) Family history: other (reviewed and noncontributory) Medications and Allergies Allergies Allergy/AdvReac Type Severity Reaction Status Date / Time No Known Allergies Allergy Verified 06/03/18 00:40 Home Medications Medication Instructions Recorded Confirmed Last Taken Type Unobtainable 06/04/18 06/04/18 Unknown History Active Meds: Active Medications Acetaminophen (Tylenol) 650 mg PO Q4H PRN PRN Reason: Pain MILD(1-3)/Fever >100.5/CRISTOBAL Last Admin: 06/03/18 22:15 Dose: 650 mg Acetaminophen/Hydrocodone Bitart ([place] 5/325) 1 each PO Q6H PRN PRN Reason: Pain, Moderate (4-6) Last Admin: 06/04/18 16:01 Dose: 1 each Dextrose (D50w (25gm) Syringe) 50 ml IV PRN PRN PRN Reason: Hypoglycemia Heparin Sodium (Porcine) (Heparin) 5,000 unit SUB-Q Q8HR [facility]I Last Admin: 06/05/18 06:45 Dose: Not Given Sodium Chloride (Nacl 0.9% 1000 Ml) 1,000 mls @ 42 mls/hr IV DIRECT [facility]I Piperacillin Sod/Tazobactam Sod (Zosyn/Ns 2.25 Gm/50ml) 2.25 gm in 50 mls @ 100 mls/hr IV Q8HR [facility]; Protocol Last Admin: 06/05/18 06:35 Dose: Not Given Metronidazole (Flagyl 500 Mg/100 Ml) 500 mg in 100 mls @ 100 mls/hr IV Q8HR [facility] ; Protocol Last Admin: 06/05/18 06:45 Dose: Not Given Sodium Chloride (Nacl 0.9%) 100 mls @ 999 mls/hr IV DUANE PRN PRN Reason: Hypotension Insulin Glargine (Lantus) 15 units SUB-Q QHS [facility] Last Admin: 06/04/18 22:50 Dose: Not Given Insulin Human Lispro (Humalog) 0 unit SUB-Q ACHS [facility]; Protocol Last Admin: 06/04/18 22:50 Dose: Not Given Ondansetron HCl (Zofran) 4 mg IV Q8H PRN PRN Reason: Nausea And Vomiting Sodium Chloride (Sodium Chloride Flush Syringe 10 Ml) 10 ml IV BID [facility] Last Admin: 06/04/18 22:30 Dose: 10 ml Sodium Chloride (Sodium Chloride Flush Syringe 10 Ml) 10 ml IV PRN PRN PRN Reason: LINE FLUSH Review of Systems All systems: negative (none) Exam Vital Signs Pulse Resp Pulse Ox 111 H 19 92 06/02/18 23:53 06/02/18 23:53 06/02/18 23:53 - General physical appearance Positive: well developed, well nourished, no distress - Eyes Positive: PERRL, normal occular movement - ENT Positive: normal pinna, normal nares, normal mucosa, no hearing loss, no congestion - Neck Positive: no masses, no bruits, trachea midline, no venous distension - Respiratory Positive: normal expansion, normal respiratory effort, clear to auscultation - Cardiovascular Rhythm: regular Heart Sounds: Present: S1 & S2. Absent: rub, click - Extremities Extremities: abnormal (Pt is s/p a right TMA. Bilateral pedal pulses are easily palpable. PT pulses are non-palpable bilaterally. There is a 1.8 cm wide ulcer along the plantar aspect of his right foot over the distal 5th metatarsal bone. This has about 5 mm of undermining and is draining a minimal amount of purulent fluid. There is a 4.5 X 3 cm ulcer over the lateral left foot and 5th toe. This is draining a moderate amount of purulent fluid. The left 5th toe is unstable, indicative of underlying disruption of the ligamentous attachments of the left 5th MTP joint.) - Breasts Breasts: deferred - Abdomen Abdomen: Present: soft, bowel sounds normal. Absent: tender, distended Hernia: none - Genitourinary Male Genitourinary: deferred - Neurologic Neurologic: alert and oriented to time, place and person, motor strength and sensation are grossly intact - Musculoskeletal normal gait, normal posture - Psychiatric Psychiatric: appropriate mood/affect, intact judgment & insight Results - Labs 06/04/18 05:52 06/04/18 05:52 Abnormal lab results 06/04/18 06/05/18 Range/Units 16:30 07:09 POC Glucose 217 H 198 H (70-105) Assessment and Plan - Patient Problems (1) Type 2 diabetes mellitus with foot ulcer Current Visit: Yes Status: Acute Plan to address problem: 1) Pt needs amputation of his left 5th toe. He also needs arterial dopplers and MRI of his right foot. However, the pt wants to be transferred to [facility], [place] and does not desire to have any surgery or additional studies performed at this hospital.
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
--- NOTE | 2018-06-05 11:20 | Consultation ---
History of Present Illness - Reason for Consult Consult date: 06/05/18 antibiotic management Requesting physician: ANTONIETTA JENSEN - History of Present Illness 62 y/o male with history of ESRD on hemodialysis and multiple amputations- right TMA, right fingers amputation, PVD, uncontrolled diabetes, patient of [facility]; admitted on 06/02/18 due to 24 hours of worsening fever, malaise. He has a left foot diabetic ulcer which has been infected. He received clindamycin recently. He has been evaluated as an outpatient and he is known to need of an amputation. In the ED, initial temperature 100.6, heart rate 111, respiration 18, O2 sat 92 , blood pressure 70/45. Initial white count 15.1. Hemoglobin 11.4. Platelets 334. Creatinine 7.3. Glucose 299. Chest x-ray was negative. CT of the abdomen show T Dante bladder wall and bilateral hip DJD. Microbiology: Blood cultures: 06/03 ngtd Urine cultures: Respiratory cultures: Wound cultures: Current Antimicrobials: Zosyn metronidazole Previous Antimicrobials: Past History Past Medical History: diabetes, ESRD (on hemodialysis), other (chronic hypotension, CHF) Past Surgical History: Other (AV fistula placement, multiple toe amputation) Social history: no significant social history (he denies tobacco, alcohol or illicit drug use) Family history: other (reviewed and noncontributory) Medications and Allergies Allergies Allergy/AdvReac Type Severity Reaction Status Date / Time No Known Allergies Allergy Verified 06/03/18 00:40 Home Medications Medication Instructions Recorded Confirmed Last Taken Type Unobtainable 06/04/18 06/04/18 Unknown History Active Meds: Active Medications Acetaminophen (Tylenol) 650 mg PO Q4H PRN PRN Reason: Pain MILD(1-3)/Fever >100.5/CRISTOBAL Last Admin: 06/03/18 22:15 Dose: 650 mg Acetaminophen/Hydrocodone Bitart ([place] 5/325) 1 each PO Q6H PRN PRN Reason: Pain, Moderate (4-6) Last Admin: 06/04/18 16:01 Dose: 1 each Dextrose (D50w (25gm) Syringe) 50 ml IV PRN PRN PRN Reason: Hypoglycemia Heparin Sodium (Porcine) (Heparin) 5,000 unit SUB-Q Q8HR MERARI Last Admin: 06/05/18 06:45 Dose: Not Given Sodium Chloride (Nacl 0.9% 1000 Ml) 1,000 mls @ 42 mls/hr IV DIRECT MERARI Piperacillin Sod/Tazobactam Sod (Zosyn/Ns 2.25 Gm/50ml) 2.25 gm in 50 mls @ 100 mls/hr IV Q8HR MERARI; Protocol Last Admin: 06/05/18 06:35 Dose: Not Given Metronidazole (Flagyl 500 Mg/100 Ml) 500 mg in 100 mls @ 100 mls/hr IV Q8HR MERARI ; Protocol Last Admin: 06/05/18 06:45 Dose: Not Given Sodium Chloride (Nacl 0.9%) 100 mls @ 999 mls/hr IV DUANE PRN PRN Reason: Hypotension Insulin Glargine (Lantus) 15 units SUB-Q QHS MERARI Last Admin: 06/04/18 22:50 Dose: Not Given Insulin Human Lispro (Humalog) 0 unit SUB-Q ACHS MERARI; Protocol Last Admin: 06/04/18 22:50 Dose: Not Given Ondansetron HCl (Zofran) 4 mg IV Q8H PRN PRN Reason: Nausea And Vomiting Sodium Chloride (Sodium Chloride Flush Syringe 10 Ml) 10 ml IV BID [facility] Last Admin: 06/04/18 22:30 Dose: 10 ml Sodium Chloride (Sodium Chloride Flush Syringe 10 Ml) 10 ml IV PRN PRN PRN Reason: LINE FLUSH Review of Systems All systems: negative (as per HPI crest of 10 point review systems negative) Physical Examination - Physical Exam Narrative exam: General appearance: Alert in NAD, conversant Eyes: anicteric sclerae, moist conjunctivae; no lid-lag; PERRLA HENT: Atraumatic; oropharynx clear. Neck: Trachea midline; supple, no thyromegaly or lymphadenopathy Lungs: CTA CV: tachy Abdomen: Soft, non-tender; no masses or hepatosplenomegaly Extremities: Left transmetatarsal amputation healed. Right 5th toe and forefoot edema, erythema, there is lateral 5th metatarsal ulcer draining purulence. Left hand fingers with amputation. Skin: Normal temperature, turgor and texture; no rash, ulcers or subcutaneous nodules Psych: Appropriate affect, alert and oriented to person, place and time. Neuro: alert and oriented x 3. Moving all extermities Lines: - Constitutional Vitals: Vital Signs Temp Pulse Resp BP Pulse Ox 98.9 F 94 H 18 124/57 92 06/05/18 05:09 06/05/18 05:09 06/05/18 05:09 06/05/18 05:09 06/05/18 05:09 Temperature -Last 24 Hours Temperature 98.9 F Temperature 99.6 F Temperature 98.7 F Temperature 98.6 F Temperature 98.9 F Results - Labs CBC & Chem 7: 06/04/18 05:52 06/04/18 05:52 Labs: Abnormal lab results 06/04/18 06/05/18 Range/Units 16:30 07:09 POC Glucose 217 H 198 H (70-105) Assessment and Plan Assessment: 1) Sepsis: Present on admission, manifested by fever, tachycardia, hypotension, leukocytosis. Etiology most likely right diabetic foot infection. 2) Right diabetic foot ulcer with cellulitis, presumed abscess and osteomyelitis 3) PVD 4) ESRD on HD 5) Previous left TMA and left hand fingers amputation 6) Diabetes uncontrolled. Plan: -follow-up blood cultures -obtain C-reactive protein (CRP) -stop zosyn -add vancomycin renally dosed -add ceffazolin renally dosed -continue flagyl -agree with right foot amputation -agree with transfer to [facility] as per patient request Thank you for your consultation, will follow up with you. Malou Odell MD Infectious Diseases Specialist [facility] ([facility] M [phone] O [phone]
[2018-06-05] MEDS: HumaLOG SUB-Q SCH ×3 (11:24→18:21)
[2018-06-05] MEDS: SODIUM CHLORIDE FLUSH SYRINGE 10 ML IV SCH (11:25)
[2018-06-05] MEDS ORDERED: VANCOMYCIN VIAL 1,000 MG in NACL 0.9% 100 ML IV SCH (12:00)
[2018-06-05] MEDS ORDERED: VANCOMYCIN PHARMACY TO DOSE IV SCH (12:00)
[2018-06-05] MEDS ORDERED: VANCOMYCIN 2,000 MG in NACL 0.9% 500 ML 500 ML IV ONE (13:00)
--- NOTE | 2018-06-05 13:45 | Progress Note ---
Assessment and Plan Assessment and plan: Mr. Bear is a 62 yo man with a history of ESRD on hemodialysis, hypertension , chronic hypotension, CHF, DM type 2 with PVD/Neuropathy s/p right foor transmetatarsal amputation and s/p right finger amputation to the DIP except thumb who presented to ED from home with fevers, chills and AMS after he stopped taking the clindamycin for chronic left foot infection because it gave him diarrhea. * CT ab/pelvis without contrast IMPRESSION: Generalized bladder wall thickening suspicious for underlying cystitis. No evidence of ileus or bowel obstruction. Normal appendix. Extensive arthritic changes involving the hip joints and lumbar spine. Small hiatal hernia. * pCXR reported as no acute findings * CT head w/o contrast IMPRESSION: Diminished attenuation of the periventricular and deep white matter compatible chronic microvascular disease changes. No evidence of acute stroke or hemorrhage. Sepsis due to skin infection probably secondary to chronic left foot cellulitis and right foot cellulitis with ulcers: treat with IV Zosyn, Follow up blood culture results Acute encephalopathy due to above, poa, resolved Acute on chronic left foot cellulitis now with Gangrene: consult Dr. Du and wound care nurse Severe PAD: consulted Vascular surgery Diarrhea resolved: ordered C. difficile toxin due to recent clindamycin use, not done b/c no diarrhea IDDM2 with hyperglycemia and PAD: On SSI and Lantus Chronic hypotension related to ESRD: Monitor blood pressure closely End-stage renal disease on HD (M,W,F): Consult nephrology Hyperkalemia: treat with hemodialysis, bmp am Anemia: cbc in am DVT prophylaxis with heparin Advance care planning: full code * left foot necrotic lateral upper edge to the midplanter area, also left 5th toe area of necrosis, * right palmar hand with ulceration, right 1-4 finger amputation at the DIP joint, * right palmar surface foot with ulceration, has right transmetatarsal amputation Patient needs left foot amputation, he wants to go to [facility], so I called [phone] to arrange History Interval history: Patient was seen and examined. Follow-up on current diagnosis of foot infection and confusion which has resolved. Overnight uneventful. Patient denies any chest pain, shortness breath, nausea/vomiting or severe headaches. Imaging, nursing note, chart, labs and old chart reviewed. Discussed with patient. Hospitalist Physical - Physical exam Narrative exam: GEN: WDWN, NAD, Awake, Alert, Orientated x 3 HEENT: NCAT, EOMI, PERRL, OP Clear, left EJ removed NECK: supple, no adenopathy, no thyromegaly, no JVD CVS/HEART: RRR, normal S1S2, pulses present bilaterally CHEST/LUNGS: CTA B, Symmetrical chest expansion, good air entry bilaterally GI/Abdomen: soft, NTND, good bowel sounds, no guarding or rebound /Bladder: no suprapubic tenderness, no CVA or paraspinal tenderness EXT/Skin: * left foot necrotic lateral upper edge to the midplanter area, left 5th toe area of necrosis, * right palmar hand with ulceration, right 1-4 finger amputation at the DIP joint, * right palmar surface foot with ulceration with right transmetatarsal amputation MSK: FROM x 4 Neuro: CN 2-12 grossly intact, no new focal deficits Psych: calm - Constitutional Vitals: Temp Pulse Resp BP Pulse Ox 98.9 F 94 H 18 124/57 92 06/05/18 05:09 06/05/18 05:09 06/05/18 05:09 06/05/18 05:09 06/05/18 05:09 General appearance: Present: no acute distress, obese Results - Labs CBC & Chem 7: 06/04/18 05:52 06/04/18 05:52 Labs: Laboratory Last Values WBC 9.9 K/mm3 (4.5-11.0) 06/04/18 05:52 RBC 3.84 M/mm3 (3.65-5.03) 06/04/18 05:52 Hgb 11.0 gm/dl (11.8-15.2) L 06/04/18 05:52 Hct 34.2 % (35.5-45.6) L 06/04/18 05:52 MCV 89 fl (84-94) 06/04/18 05:52 MCH 29 pg (28-32) 06/04/18 05:52 MCHC 32 % (32-34) 06/04/18 05:52 RDW 18.7 % (13.2-15.2) H 06/04/18 05:52 Plt Count 307 K/mm3 (140-440) 06/04/18 05:52 Lymph % (Auto) 12.8 % (13.4-35.0) L 06/04/18 05:52 [place] % (Auto) 12.1 % (0.0-7.3) H 06/04/18 05:52 Eos % (Auto) 2.2 % (0.0-4.3) 06/04/18 05:52 Baso % (Auto) 0.5 % (0.0-1.8) 06/04/18 05:52 Lymph # 1.3 K/mm3 (1.2-5.4) 06/04/18 05:52 [place] # 1.2 K/mm3 (0.0-0.8) H 06/04/18 05:52 Eos # 0.2 K/mm3 (0.0-0.4) 06/04/18 05:52 Baso # 0.0 K/mm3 (0.0-0.1) 06/04/18 05:52 Seg Neutrophils % 72.4 % (40.0-70.0) H 06/04/18 05:52 Seg Neutrophils # 7.2 K/mm3 (1.8-7.7) 06/04/18 05:52 Sodium 137 mmol/L (137-145) 06/04/18 05:52 Potassium 5.3 mmol/L (3.6-5.0) H 06/04/18 05:52 Chloride 94.0 mmol/L (98-107) L 06/04/18 05:52 Carbon Dioxide 25 mmol/L (22-30) 06/04/18 05:52 Anion Gap 23 mmol/L 06/04/18 05:52 BUN 49 mg/dL (9-20) H 06/04/18 05:52 Creatinine 9.7 mg/dL (0.8-1.5) H 06/04/18 05:52 Estimated GFR 7 ml/min 06/04/18 05:52 BUN/Creatinine Ratio 5 % 06/04/18 05:52 Glucose 171 mg/dL (75-100) H 06/04/18 05:52 POC Glucose 243 (70-105) H 06/05/18 12:49 Lactic Acid 1.20 mmol/L (0.7-2.0) 06/03/18 00:48 Calcium 9.1 mg/dL (8.4-10.2) 06/04/18 05:52 Total Bilirubin 0.30 mg/dL (0.1-1.2) 06/03/18 01:41 AST 22 units/L (5-40) 06/03/18 01:41 ALT 24 units/L (7-56) 06/03/18 01:41 Alkaline Phosphatase 118 units/L (35-129) 06/03/18 01:41 Total Creatine Kinase 32 units/L (55-170) L 06/03/18 01:41 Troponin T 0.074 ng/mL (0.00-0.029) H 06/03/18 01:41 Total Protein 6.6 g/dL (6.3-8.2) 06/03/18 01:41 Albumin 3.3 g/dL (3.9-5) L 06/03/18 01:41 Albumin/Globulin Ratio 1.0 % 06/03/18 01:41 Triglycerides 134 mg/dL (2-149) 06/03/18 01:41 Cholesterol 68 mg/dL (50-199) 06/03/18 01:41 LDL Cholesterol Direct 26 mg/dL (50-130) L 06/03/18 01:41 HDL Cholesterol 12 mg/dL (40-59) L 06/03/18 01:41 Cholesterol/HDL Ratio 5.66 % 06/03/18 01:41 Hepatitis A IgM Ab Non-reactive (NonReactive) 06/04/18 11:15 Hep Bs Antigen Non-reactive (Negative) 06/04/18 11:15 Hep B Core IgM Ab Non-reactive (NonReactive) 06/04/18 11:15 Hepatitis C Antibody Non-reactive (NonReactive) 06/04/18 11:15
--- NOTE | 2018-06-05 14:20 | Discharge Summary ---
Providers - Providers Date of Admission: 06/03/18 06:21 Attending physician: CHARISSE RIZZO 06/03/18 13:38 Consult to Physician [CONS] Routine Comment: Consulting Provider: WILLIAM DU Physician Instructions: Reason For Exam: gangrene left foot Consult to Physician [CONS] Routine Comment: Consulting Provider: LE GUTHRIE Physician Instructions: Reason For Exam: esrd, hyperkalemia 06/03/18 13:39 Consult to Physician [CONS] Routine Comment: Consulting Provider: JIMMY NICHOLS Physician Instructions: Reason For Exam: pad, gangrene left foot, dm 06/03/18 21:33 Consult to Wound/ET Nurse [CONS] Routine Reason For Exam: wound eval 06/04/18 08:33 Consult to PICC Line RN [CONS] Urgent Reason For Exam: need peripheral IV, remove left neck IJ Type Line:: Midline 06/04/18 13:05 Consult to Physician [CONS] Routine Comment: Consulting Provider: DARRYL PATIÑO Physician Instructions: Reason For Exam: antibiotic management Primary care physician: SODIUM CHLORITE OPERATOR Hospitalization Condition: Stable Hospital course: Mr. Bear is a 62 yo man with a history of ESRD on hemodialysis, hypertension , chronic hypotension, CHF, DM type 2 with PVD/Neuropathy s/p right foor transmetatarsal amputation and s/p right finger amputation to the DIP except thumb who presented to ED from home with fevers, chills and AMS after he stopped taking the clindamycin for chronic left foot infection because it gave him diarrhea. * CT ab/pelvis without contrast IMPRESSION: Generalized bladder wall thickening suspicious for underlying cystitis. No evidence of ileus or bowel obstruction. Normal appendix. Extensive arthritic changes involving the hip joints and lumbar spine. Small hiatal hernia. * pCXR reported as no acute findings * CT head w/o contrast IMPRESSION: Diminished attenuation of the periventricular and deep white matter compatible chronic microvascular disease changes. No evidence of acute stroke or hemorrhage. Sepsis due to skin infection probably secondary to chronic left foot cellulitis and right foot cellulitis with ulcers: treat with IV Zosyn, Follow up blood culture results Acute encephalopathy due to above, poa, resolved Acute on chronic left foot cellulitis now with Gangrene: consult Dr. Du and wound care nurse Severe PAD: consulted Vascular surgery Diarrhea resolved: ordered C. difficile toxin due to recent clindamycin use, not done b/c no diarrhea IDDM2 with hyperglycemia and PAD: On SSI and Lantus Chronic hypotension related to ESRD: Monitor blood pressure closely End-stage renal disease on HD (M,W,F): Consult nephrology Hyperkalemia: treat with hemodialysis, bmp am Anemia: cbc monitoring DVT prophylaxis with heparin Advance care planning: full code * left foot necrotic lateral upper edge to the midplanter area, also left 5th toe area of necrosis, * right palmar hand with ulceration, right 1-4 finger amputation at the DIP joint, * right palmar surface foot with ulceration, has right transmetatarsal amputation Patient needs left foot amputation, he wants to go to [facility], he doesn 't want anymore testing here or any surgeries, so I called [phone] to arrange, D/W Dr. Lopez from [place], who called me back and pt has been accepted to [facility] by Dr. Uribe. Patient is on IV Vancomycin, IV cefepime and IV flagyl per ID, Dr. Jain. Blood culture negative x 48 hours, ok to downgrade to [facility] with remote while waiting on pickup Disposition: [id number] ANOTHER TYPE [facility] Time spent for discharge: 35 minutes Core Measure Documentation - Palliative Care Palliative Care/ Comfort Measures: Not Applicable - Core Measures Any of the following diagnoses?: none - VTE Discharge Requirements Deep Vein Thrombosis/Pulmonary Embolism Present on Admission: No Has pt received <5 days of overlap therapy or INR<2.0: No Anticoagulant overlap therapy prescribed at discharge: No Contraindication No Overlap Therapy order at DC: Not Indicated Exam - Physical Exam Narrative exam: GEN: WDWN, NAD, Awake, Alert, Orientated x 3 HEENT: NCAT, EOMI, PERRL, OP Clear, left EJ removed NECK: supple, no adenopathy, no thyromegaly, no JVD CVS/HEART: RRR, normal S1S2, pulses present bilaterally CHEST/LUNGS: CTA B, Symmetrical chest expansion, good air entry bilaterally GI/Abdomen: soft, NTND, good bowel sounds, no guarding or rebound /Bladder: no suprapubic tenderness, no CVA or paraspinal tenderness EXT/Skin: * left foot necrotic lateral upper edge to the midplanter area, left 5th toe area of necrosis, * right palmar hand with ulceration, right 1-4 finger amputation at the DIP joint, * right palmar surface foot with ulceration with right transmetatarsal amputation MSK: FROM x 4 Neuro: CN 2-12 grossly intact, no new focal deficits Psych: calm - Constitutional Vitals: Temp Pulse Resp BP Pulse Ox 98.9 F 94 H 18 124/57 92 06/05/18 05:09 06/05/18 05:09 06/05/18 05:09 06/05/18 05:09 06/05/18 05:09 Plan Activity: other (no strenous activity) Diet: diabetic, renal Wound: per your surgeon's advice, per wound nurse instructions Follow up with: PRIMARY CARE, [Primary Care Provider] - 3-5 Days
[2018-06-05 15:22] VITALS: BP 134/82
[2018-06-05] MEDS ORDERED: MAXIPIME/NS 1 GM/100 ML 1 GM/100 ML BAG IV SCH (16:00)
== END 2018-06-05 19:25 | disposition short-term general hospital (02) | DRG 871 ==
LOC: ED 23:46 → 4A 06-03 06:21
PROVIDERS: ADMIT Internal Medicine; ATTEND Internal Medicine
PROC: 5A1D70Z Performance of Urinary Filtration, Intermittent, Less than 6 Hours Per Day (ICD-10-PCS; principal; 2018-06-04)
PROC: 05HQ33Z Insertion of Infusion Device into Left External Jugular Vein, Percutaneous Approach (ICD-10-PCS; 2018-06-04)
DX: A41.9 Sepsis, unspecified organism (principal); N18.6 End stage renal disease; G93.40 Encephalopathy, unspecified; L03.116 Cellulitis of left lower limb; I13.2 Hypertensive heart and chronic kidney disease with heart failure and with stage 5 chronic kidney disease, or end stage renal disease; N30.00 Acute cystitis without hematuria; E11.52 Type 2 diabetes mellitus with diabetic peripheral angiopathy with gangrene; I96 Gangrene, not elsewhere classified; N25.81 Secondary hyperparathyroidism of renal origin; L03.115 Cellulitis of right lower limb; Z99.2 Dependence on renal dialysis; E11.22 Type 2 diabetes mellitus with diabetic chronic kidney disease; I50.9 Heart failure, unspecified; R09.02 Hypoxemia; E87.5 Hyperkalemia; Z89.429 Acquired absence of other toe(s), unspecified side; E11.65 Type 2 diabetes mellitus with hyperglycemia; E11.40 Type 2 diabetes mellitus with diabetic neuropathy, unspecified; D63.1 Anemia in chronic kidney disease; E11.621 Type 2 diabetes mellitus with foot ulcer; L97.529 Non-pressure chronic ulcer of other part of left foot with unspecified severity; Z89.022 Acquired absence of left finger(s); L97.519 Non-pressure chronic ulcer of other part of right foot with unspecified severity
CPT/HCPCS: 36415; 70450; 71045; 74176; 80048; 80053; 80061; 80074; 82140; 82550; 82962; 84484; 85025; 87040; 93005; 93010; 94760; J0692; J1644; J1815; J2543; J3370; J7030; J7040